=== PATIENT | male | born 1960 | race Caucasian/White ===

== ENCOUNTER 2016-04-21 13:18 | Outpatient (CLI) | payer OTHER ==
--- NOTE | 2016-04-21 15:44 | DIAGNOSTIC IMAGING REPORT ---
PROCEDURE: CT LOW-DOSE LUNG CA SCREENING CLINICAL INDICATION: Screening. Current smoker, 12-month follow-up. TECHNIQUE: Low-dose helical CT images of the lungs without contrast were obtained and reconstructed at 2.5 mm slice thickness. MIP reformations in coronal and sagittal planes were created. Radiation dose 1.38 mGy. COMPARISON: Oldest available comparison: 02/25/2015 FINDINGS: NODULES: New nodules: None Follow-up nodules: 1. Location: Right posterior upper lobe, image location: 36 size: 3 mm, composition: Semisolid, stable 2. Location: Subpleural lateral right upper lobe image location: 43 size: Not discretely measurable composition: Ground-glass, decreasing. 3. Location: Pleural-based lateral left costophrenic angle image location: 112 size: 5 mm composition: Semisolid, stable 4. Location: Inferior right upper lobe image location: Coronal series image 92 size: 4 mm composition: Ground-glass, stable OTHER LUNG FINDINGS: Stable mild to moderate bilateral perihilar peribronchial thickening. Mild subpleural interstitial thickening in the lingula and medially in the right lower and right middle lobes. AIRWAY: Branches normally without narrowing or endobronchial nodule. PLEURA: No effusions, thickening, or pneumothorax. AORTA AND GREAT VESSELS: Normal caliber, no significant atherosclerotic calcification. PULMONARY ARTERIES: Mildly enlarged, stable. . HEART AND PERICARDIUM: Normal size without effusion, thickening. LYMPH NODES: No enlarged nodes visible. THORACIC SPINE: No suspicious lesion. CHEST WALL: Normal. VISUALIZED UPPER ABDOMEN: Normal. IMPRESSION: 1. No new nodules. 2. A few tiny lung nodules are stable and likely benign. Screening low-dose chest CT in 12 months is recommended. 3. Chronic peribronchial thickening suggestive of chronic bronchitis. All CT scans at this facility use dose modulation, iterative reconstruction, and/or weight-based dosing when appropriate to reduce radiation dose to as low as reasonably achievable.
== END 2016-04-21 23:00 | disposition home or self-care (01) ==
LOC: CT SRH 13:18
DX: R91.1 Solitary pulmonary nodule (principal); F17.210 Nicotine dependence, cigarettes, uncomplicated